=== PATIENT | male | born 1975 | race Two or more races ===

== ENCOUNTER 2016-08-09 19:21 | Inpatient (IN) | payer BC ==
[~2016-08-09] VITALS: Ht 175.3 cm; Wt 83.9 kg
[2016-08-09] MEDS ORDERED: VANCOMYCIN 1 GM in IV NORMAL SALINE 250ML 250 ML IV STA (19:49)
[2016-08-09] MEDS ORDERED: PIPERACILLIN/TAZOBACTAM 3.375 GM in IV NORMAL SALINE 50ML 50 ML IV ONE (20:00)
--- NOTE | 2016-08-09 20:00 | PHYS DOC ---
Adult General Chief Complaint Chief Complaint: HAND PROBLEM HPI HPI Patient is a 41 year old female presents to the emergency department for evaluation of left dorsal distal metacarpal pain redness swelling that started shortly after injury however it became much worse yesterday. There is an obvious laceration to the wound and he says it has been draining blood and purulence over the past 24 hours. He does have pain but he says it is not unbearable. He says it hurts to palpate and move his finger however on examination he is able to flex and extend his index finger with minimal difficulty actively and passively. He says that his tetanus status is up-to- date and he has no diabetes or immune system issues. He is left-handed. Review of Systems Review of Systems Constitutional: Denies fever or chills [] Eyes: Denies change in visual acuity, redness, or eye pain [] HENT: Denies nasal congestion or sore throat [] Respiratory: Denies cough or shortness of breath [] Cardiovascular: No additional information not addressed in HPI [] GI: Denies abdominal pain, nausea, vomiting, bloody stools or diarrhea [] : Denies dysuria or hematuria [] Musculoskeletal: Denies back pain. + L hand joint pain [] Integument: Denies rash or skin lesions [] Neurologic: Denies headache, focal weakness or sensory changes [] Current Medications Current Medications Current Medications Medications (Trade) Dose Ordered Sig/Sheila Start Time Stop Time Status Last Admin Dose Admin Fentanyl Citrate (Fentanyl 2ml Vial) 50 mcg PRN Q1HR PRN 08/09/16 20:45 08/10/16 20:44 Morphine Sulfate 5 mg 1X ONCE 08/09/16 20:45 08/09/16 20:46 DC Ondansetron HCl (Zofran) 4 mg PRN Q8HRS PRN 08/09/16 20:45 08/10/16 20:44 Piperacillin Sod/ Tazobactam Sod 3.375 gm/Sodium Chloride 50 ml @ 100 mls/hr 1X ONCE 08/09/16 20:00 08/09/16 20:29 DC 08/09/16 20:29 100 MLS/HR Vancomycin HCl 1 gm/Sodium Chloride 250 ml @ 250 mls/hr 1X STAT 08/09/16 19:49 08/09/16 20:48 UNV Vancomycin HCl 2 gm/Sodium Chloride 500 ml @ 250 mls/hr 1X ONCE 08/09/16 20:30 08/09/16 22:29 Allergies Allergies Allergies Coded Allergies Type Severity Reaction Last Updated Verified No Known Drug Allergies 08/09/16 No Physical Exam Physical Exam Constitutional: Well developed, well nourished, no acute distress, non-toxic appearance. [] HENT: Normocephalic, atraumatic, bilateral external ears normal, oropharynx moist, no oral exudates, nose normal. [] Eyes: PERRLA, EOMI, conjunctiva normal, no discharge. [] Neck: Normal range of motion, no tenderness, supple, no stridor. [] Cardiovascular:Heart rate regular rhythm, no murmur [] Lungs & Thorax: Bilateral breath sounds clear to auscultation [] Abdomen: Bowel sounds normal, soft, no tenderness, no masses, no pulsatile masses. [] Skin: Warm, dry, no erythema, no rash. [] Back: No tenderness, no CVA tenderness. [] Extremities: L doral distal metacarpal on index digit has laceration that is scabbed. No active drainage. There is appx 3x3cm surrounding redness, warmth, swelling, pain. He is able to flex and extend index finger actively and passively with no significant pain. No fusiform digit. No flexor tendon pain. No Knavels s/s. Distally NV intact Neurologic: Alert and oriented X 3, normal motor function, normal sensory function, no focal deficits noted. [] Current Patient Data Vital Signs Vital Signs Date Time Temp Pulse Resp B/P (MAP) Pulse Ox O2 Delivery O2 Flow Rate FiO2 08/09/16 19:45 98.6 84 16 125/67 (86) 95 98.6 Lab Values Laboratory Tests Test 08/09/16 20:02 White Blood Count 10.2 x10^3/uL (4.0-11.0) Red Blood Count 4.51 x10^6/uL (4.30-5.70) Hemoglobin 14.7 g/dL (13.0-17.5) Hematocrit 43.9 % (39.0-53.0) Mean Corpuscular Volume 97 fL (79-100) Mean Corpuscular Hemoglobin 33 pg (25-35) Mean Corpuscular Hemoglobin Concent 34 g/dL (31-37) Red Cell Distribution Width 12.1 % (11.5-14.5) Platelet Count 165 x10^3/uL (140-400) Neutrophils (%) (Auto) 76 % (31-73) H Lymphocytes (%) (Auto) 15 % (24-48) L Monocytes (%) (Auto) 8 % (0-9) Eosinophils (%) (Auto) 1 % (0-3) Basophils (%) (Auto) 0 % (0-3) Neutrophils # (Auto) 7.7 x10^3uL (1.8-7.7) Lymphocytes # (Auto) 1.5 x10^3/uL (1.0-4.8) Monocytes # (Auto) 0.8 x10^3/uL (0.0-1.1) Eosinophils # (Auto) 0.1 x10^3/uL (0.0-0.7) Basophils # (Auto) 0.0 x10^3/uL (0.0-0.2) Sodium Level 140 mmol/L (136-145) Potassium Level 3.7 mmol/L (3.5-5.1) Chloride Level 105 mmol/L (98-107) Carbon Dioxide Level 24 mmol/L (21-32) Anion Gap 11 (6-14) Blood Urea Nitrogen 20 mg/dL (8-26) Creatinine 0.9 mg/dL (0.7-1.3) Estimated GFR (Cockcroft-Gault) 93.0 BUN/Creatinine Ratio 22 (6-20) H Glucose Level 158 mg/dL (70-99) H Calcium Level 8.8 mg/dL (8.5-10.1) Total Bilirubin Pending Aspartate Amino Transferase (AST) Pending Alanine Aminotransferase (ALT) Pending Alkaline Phosphatase Pending C-Reactive Protein, Quantitative Pending Total Protein Pending Albumin Pending Albumin/Globulin Ratio Pending Laboratory Tests 08/09/16 20:02 Laboratory Tests 08/09/16 20:02 EKG EKG [] Radiology/Procedures Radiology/Procedures Left hand shows no obvious fracture dislocation or foreign body. His soft tissues appear swollen. Course & Med Decision Making Course & Med Decision Making I spoke to Dr. Jackson and he is agreeable to consult on patient as long as there is no open fracture or obvious tendon infection. I do not believe that there is a flexor or extensor tendon infection at this time. I am quite concerned as he is left-handed and there is a moderate amount of swelling and I' m concerned about outpatient antibiotics given location. Dr. Young is willing to admit and Dr. Jackson will consult and patient is to be nothing by mouth after midnight. Patient is receiving Vanc and Zosyn at this time. Dragon Disclaimer Dragon Disclaimer This electronic medical record was generated, in whole or in part, using a voice recognition dictation system. Departure Departure Impression: Primary Impression: Cellulitis of hand, left Disposition: ADMITTED INPATIENT Admitting Physician: Terence Young Condition: STABLE Referrals: CECELIA AGUILAR MD (PCP) JYOTHI HUTSON DO Aug 09, 2016 20:00
[2016-08-09 20:27] LABS: BASO % 0 % (0-3); EOS % 1 % (0-3); HEMATOCRIT 43.9 % (39.0-53.0); HEMOGLOBIN 14.7 g/dL (13.0-17.5); LYMPH # 1.5 x10^3/uL (1.0-4.8); LYMPH % 15 % (24-48); MEAN CORPUSCULAR HEMOGLOBIN 33 pg (25-35); MEAN CORPUSCULAR HGB CONC 34 g/dL (31-37); MEAN CORPUSCULAR VOLUME 97 fL (79-100); MONO % 8 % (0-9); NEUT % 76 % (31-73); PLATELET COUNT 165 x10^3/uL (140-400); RED BLOOD COUNT 4.51 x10^6/uL (4.30-5.70); RED CELL DISTRIBUTION WIDTH 12.1 % (11.5-14.5); WHITE BLOOD COUNT 10.2 x10^3/uL (4.0-11.0)
[2016-08-09] MEDS ORDERED: VANCOMYCIN 2 GM in IV NORMAL SALINE 500ML BAG 500 ML IV ONE (20:30)
[2016-08-09] MEDS ORDERED: ONDANSETRON PF 4 MG/2 ML VIAL. IV PRN (20:45)
[2016-08-09] MEDS ORDERED: MORPHINE SULFATE 10 MG/ML VIAL. IV ONE (20:45)
[2016-08-09 20:46] LABS: CALCIUM 8.8 mg/dL (8.5-10.1); CREATININE 0.9 mg/dL (0.7-1.3); POTASSIUM 3.7 mmol/L (3.5-5.1)
[2016-08-09 20:53] LABS: ALBUMIN/GLOBULIN RATIO 1.2 (1.0-1.7); C-REACTIVE PROTEIN 54.7 mg/L (0-3.3); TOTAL BILIRUBIN 0.8 mg/dL (0.2-1.0); TOTAL PROTEIN 7.4 g/dL (6.4-8.2)
[2016-08-09] MEDS: fentaNYL PF VIAL 100 MCG/2 ML VIAL IV PRN (22:39)
[2016-08-09 23:06] VITALS: BP 123/69
[2016-08-10] MEDS: diphenhydrAMINE 50 MG/ML VIAL IVP PRN (00:09)
[2016-08-10] MEDS: fentaNYL PF VIAL 100 MCG/2 ML VIAL IV PRN ×5 (00:21→20:29)
[2016-08-10 03:02] VITALS: BP 125/70
[2016-08-10 06:07] LABS: BASO % 0 % (0-3); EOS % 1 % (0-3); HEMOGLOBIN 14.8 g/dL (13.0-17.5); LYMPH % 8 % (24-48); MEAN CORPUSCULAR HEMOGLOBIN 33 pg (25-35); MEAN CORPUSCULAR HGB CONC 34 g/dL (31-37); MEAN CORPUSCULAR VOLUME 97 fL (79-100); MONO % 7 % (0-9); NEUT % 85 % (31-73); PLATELET COUNT 159 x10^3/uL (140-400); RED BLOOD COUNT 4.52 x10^6/uL (4.30-5.70); RED CELL DISTRIBUTION WIDTH 12.5 % (11.5-14.5); WHITE BLOOD COUNT 12.4 x10^3/uL (4.0-11.0)
[2016-08-10 06:20] LABS: CALCIUM 8.6 mg/dL (8.5-10.1); CREATININE 0.9 mg/dL (0.7-1.3); POTASSIUM 4.3 mmol/L (3.5-5.1)
[2016-08-10 07:41] VITALS: BP 109/60
--- NOTE | 2016-08-10 07:44 | RAD ---
Indication: Second metacarpal pain and swelling. Time of exam 2010 hours. 3 views of the left hand were obtained. There is some mild soft tissue swelling along the dorsum of the hand. The metacarpals and phalanges appear intact. No fractures are seen. The carpus is unremarkable. Impression: Soft tissue swelling. No acute bony abnormality is detected.
--- NOTE | 2016-08-10 10:43 | PDOC ---
Provider Note Provider Note H&P dictated # [id number] He has an abscess of dorsal left hand that despite overnight IV antibiotics is not improving and it may involve the extensor tendons, he had and overnight temp , his WBC is increasing, his sed rate is normal but CRP is 54 but he also has some seasonal allergies, he has a family hx of diabetes and his glucose is mildly elevated. Will get MRI of left upper ext, ortho to see, continue IV abx , may need ID to see if surgery not indicated. will check A1c, do fingetstick glc, check IgE as if elevated then elevated CRP may be reflective of allergies but if not then can assume it is from infection NANCY CASTILLO MD Aug 10, 2016 10:43
[2016-08-10] MEDS ORDERED: DEXTROSE 50% 25 GM / 50ML DISP.SYRIN. IV PRN (10:45)
[2016-08-10] MEDS: ACETAMINOPHEN 325 MG TABLET. PO PRN ×2 (11:03→20:44)
--- NOTE | 2016-08-10 11:08 | HP ---
ADMIT DATE: 08/09/2016 ADMISSION DIAGNOSIS: Abscess, left hand, possible tendon involvement. 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 He had pain developed and is unable to flex his index, middle and ring fingers because of the swelling and pain. He has developed pain up his forearm now. He is left handed. His Emergency Room evaluation revealed concern for tendinous involvement and he was admitted on IV vancomycin and Zosyn and this point is not showing any significant improvement. He did develop some itching with fentanyl. He denies any fever, chills or systemic symptoms. PAST MEDICAL HISTORY: Significant for seasonal allergies and tobacco use. PAST SURGICAL HISTORY: Include tonsillectomy. FAMILY HISTORY: Prostate cancer in an uncle and diabetes in his mother. SOCIAL HISTORY: Positive for tobacco. ALLERGIES: He has no known drug allergies. HOME MEDICATIONS: He takes no routine home medications. REVIEW OF SYSTEMS: CONSTITUTIONAL: Negative for fever, chills, night sweats or weight loss. PULMONARY: Negative for cough. CARDIAC: Negative for chest pain or palpitations. GASTROINTESTINAL: Negative for GERD or change in bowels. PULMONARY: Negative for urinary frequency. SKIN: As above. MUSCULOSKELETAL: Negative for gout. NEUROLOGIC: Negative for headaches, seizures or tremor. PSYCHIATRIC: Negative for depression. PHYSICAL EXAMINATION: VITAL SIGNS: He had a temperature of 100.2 at 3 a.m. Blood pressure is normal. Room air oxygen saturation is normal. Respiratory rate is normal. Heart rate is normal. GENERAL: He is in no acute distress, but he is unable to flex his left index, middle and ring finger due to swelling in the dorsal hand. It does prevent flexion of the wrist and when he does, there is pain up his forearm suggesting there may in now be tendon involvement. There is no active drainage from it at this point. HEART: Regular rate and rhythm. LUNGS: Clear to auscultation. ABDOMEN: Soft and nondistended. EXTREMITIES: Rest of the extremities are unremarkable. NEUROLOGIC: He is intact. He is alert and oriented with appropriate mood and affect. LABORATORY DATA: Shows white count has gone up from 10.2 to 12.4 overnight. Sed rate was only 10. Chemistries are unremarkable, but his initial glucose was 158 and followup was 111. C-reactive protein is elevated at 54.7. ASSESSMENT AND PLAN: 1. Abscess of the left hand, admitted for concern about tendon involvement. He seems to be worsening with fever overnight and elevated white count despite antibiotics. 2. Seasonal allergies. 3. Hyperglycemia. We will continue his IV antibiotics. We will stop his fentanyl as he may have had some itching related to it. Dr. Jackson will see him in consultation. MRI of the hand is ordered. He will likely need operative I and D. W Kana CASTILLO MD DR: JUAN/al JOB#: [id number] / [id number]
[2016-08-10 11:29] VITALS: BP 102/50
[2016-08-10] MEDS: INSULIN ASPART 300 UNITS/3 ML INSULN.PEN SQ SCH ×2 (12:00→17:00)
[2016-08-10] MEDS: VANCOMYCIN PER PHARMACY MC PRN (12:38)
[2016-08-10] MEDS: PIPERACILLIN/TAZOBACTAM 3.375 GM in IV NORMAL SALINE 50ML 50 ML IV SCH ×2 (13:02→17:35)
[2016-08-10] MEDS: VANCOMYCIN 1.25 GM in IV NORMAL SALINE 250ML 250 ML IV SCH ×2 (14:05→20:36)
[2016-08-10 19:00] VITALS: BP 100/68
[2016-08-10] MEDS ORDERED: ONDANSETRON PF 4 MG/2 ML VIAL. IV PRN (22:30)
[2016-08-10] MEDS ORDERED: fentaNYL PF VIAL 100 MCG/2 ML VIAL IV PRN (22:30)
[2016-08-10 22:36] VITALS: BP 113/59
[2016-08-11] MEDS: HYDROcodone/APAP 5/325MG 1 TAB TABLET PO PRN ×4 (00:05→23:43)
[2016-08-11] MEDS: PIPERACILLIN/TAZOBACTAM 3.375 GM in IV NORMAL SALINE 50ML 50 ML IV SCH ×5 (00:05→23:35)
[2016-08-11 02:37] VITALS: BP 99/56
[2016-08-11] MEDS: VANCOMYCIN 1.25 GM in IV NORMAL SALINE 250ML 250 ML IV SCH ×3 (05:09→21:44)
[2016-08-11 07:00] VITALS: BP 91/60
--- NOTE | 2016-08-11 07:26 | CONS ---
DATE OF CONSULTATION: 08/10/2016 REQUESTING CONSULTATION: [facility] as well as Dr. Lefty Young. REASON FOR CONSULTATION: Left hand infection. HISTORY OF PRESENT ILLNESS: The patient is a 41-year-old male who hit his hand with a hammer approximately a week ago. He had a cut on his hand at that time and states that he was able to still move his fingers initially, subsequently developed some more swelling and pain and then started to have some purulent drainage as of the day prior to admission and then came to the Emergency Department late last night having increased pain, redness, swelling. Tetanus was previously up-to-date. He is left hand dominant. He denies any significant medical problems. ____ No surgical history. ALLERGIES: No known drug allergies. MEDICATIONS: Really, no medications prior. PAST SURGICAL HISTORY: Does include a tonsillectomy, however. PAST MEDICAL HISTORY: Significant for seasonal allergies. FAMILY HISTORY: Diabetes in his mom and prostate cancer in one of his uncles. SOCIAL HISTORY: Does use tobacco. Denies alcohol or drug use. REVIEW OF SYSTEMS: No fever, chills and no other joint pain or limitations, just the stiffness of the left hand, particularly the index finger. PHYSICAL EXAMINATION: VITAL SIGNS: He is currently afebrile. He had a temp of 100.2 last night. Vital signs are otherwise stable. EXTREMITIES: On examination of the left upper extremity, he has a small oblique laceration, lateral and proximal to the metacarpophalangeal joint of the index finger. Really, no tenderness overlying the extensor or flexor tendon sheaths or the joint itself. He has swelling in the hand extending towards the first webspace of the left hand, which is preventing him from full flexion. He can extend fully passively. Active extension is limited secondary to pain. He has full motion of the remaining fingers. Normal examination of the contralateral hand, bilateral wrists, elbows and shoulders with overall intact motor function, distal pulses, sensation, reflexes, skin in both upper extremities throughout. IMAGING: X-rays of the left hand show no evidence of fracture or other bony abnormality. Joint spaces are well maintained. IMPRESSION: Left hand infection. TREATMENT PLAN: The patient was previously placed on some Zosyn and vancomycin, which did not really give him any reaction initially, but stated that his Zosyn seemed to cause him some itching today with the current dose that is hanging, also had some itching with fentanyl that was obtained in the Emergency Department. He had an increased white count overnight, hyperglycemia and states that his hand does feel a little bit better since initiating the antibiotics, but is still very painful. I went over with him the fact that the area does appear fluctuant and there is probably some fluid collected underneath the skin. We could possibly take him down to the operating room, but if he is not very tender, we have a possibility of opening the area up and washing it out somewhat right here and packing it open, hopefully saving him a formal operating room visit. He would prefer that. So, after consent was obtained, the left hand was prepped sterilely and a small longitudinal incision was made following along the oblique wound as well and purulent drainage was expressed out of the area, which was cultured. The area was irrigated out as well, appeared to have a superficial involvement in the subcutaneous area, again really not involving the tendon sheaths or joint spaces, particularly at the metacarpophalangeal joint. The area was packed open and sterilely dressed. He did ask if he could go home today. I told him the problem with that approach is that we would really not know what antibiotic to keep him on, particularly with the reaction to the antibiotic cultures having been just obtained and the fact that he had worsened somewhat overnight, I really like to see a little bit of improvement, so would prefer to keep him today for some additional IV antibiotics and to sort the situation out better as far as his response to the irrigation and debridement procedure above. Note that this is an initial orthopedic consultation as well as a procedure note. SANDRA CRUZ MD DR: JULIETTE/al JOB#: [id number] / [id number] Es Rome MD, MICHAEL MD
[2016-08-11] MEDS: INSULIN ASPART 300 UNITS/3 ML INSULN.PEN SQ SCH ×3 (08:00→17:00)
[2016-08-11 10:45] VITALS: BP 112/58
--- NOTE | 2016-08-11 10:54 | RAD ---
MR of the left hand without contrast HISTORY: Dorsal left hand abscess with possible tendon involvement for 3 or 4 days. TECHNIQUE: Routine multiplanar sequences are obtained. FINDINGS: Diffuse soft tissue edema and swelling of the hand, greatest dorsal. There is a more organized fluid signal appearing component within the edema and posterior to the second and third metacarpals, measuring approximately 3.0 cm wide by 2.3 cm long by 1.0 cm depth. This is suspicious for a small abscess. The second extensor tendons are immediately deep to this collection and contacting the collection but appear intrinsically intact. Some degree of involvement of the collection with the tendon sheath is possible. Tendons are otherwise intact. No evidence of bone lesion. No acute fracture. No significant joint effusion. IMPRESSION: 1. Soft tissue edema/infection along the hand, greatest dorsally. 2. More organized soft tissue fluid collection posterior to the second and third metacarpal shafts, most compatible with a small abscess measuring 3 cm long [place]. 3. The second extensor tendon is immediately deep to this collection and contacted by the collection. The tendons themselves appear intrinsically intact but the collection or abscess may communicate with the tendon sheath. Electronically signed by: Lm Covington MD (08/11/2016 10:51 AM)
[2016-08-11 11:17] LABS: IMMUNOGLUBULIN E 179 IU/mL (0-100)
[2016-08-11 12:28] LABS: BASO % 1 % (0-3); EOS % 2 % (0-3); HEMATOCRIT 41.1 % (39.0-53.0); HEMOGLOBIN 14.1 g/dL (13.0-17.5); LYMPH # 1.4 x10^3/uL (1.0-4.8); LYMPH % 15 % (24-48); MEAN CORPUSCULAR HEMOGLOBIN 33 pg (25-35); MEAN CORPUSCULAR HGB CONC 34 g/dL (31-37); MEAN CORPUSCULAR VOLUME 97 fL (79-100); MONO % 8 % (0-9); NEUT % 75 % (31-73); PLATELET COUNT 161 x10^3/uL (140-400); RED BLOOD COUNT 4.25 x10^6/uL (4.30-5.70); RED CELL DISTRIBUTION WIDTH 11.9 % (11.5-14.5); WHITE BLOOD COUNT 9.6 x10^3/uL (4.0-11.0)
--- NOTE | 2016-08-11 13:05 | PDOC ---
PROGRESS NOTES Subjective Subjective He had bedside I&D of hand yesterday but MRI of hand which has now been read suggests tendon involvement. He is tolerating the IV antibiotics without further itching and pain is controlled with po meds, dressing is dry. ROS id all negative Objective Objective Vital Signs Date Time Temp Pulse Resp B/P (MAP) Pulse Ox O2 Delivery O2 Flow Rate FiO2 08/11/16 10:45 98.4 62 18 112/58 (76) 95 Room Air 98.4 Intake and Output 08/11/16 07:00 Intake Total 1700 ml Balance 1700 ml Intake Oral 1400 ml IV Total 300 ml # Voids 3 Physical Exam Abdomen: Soft Extremities: Other (left hand dressed, but still has limited ROM) General: Alert, Oriented X3, Cooperative HEENT: Atraumatic Lungs: Normal air movement MUSCULOSKELETAL: No joint tenderness Psych/Mental Status: Mental status NL Assessment Assessment Problems Medical Problems: (1) Cellulitis of hand, left, s/p bedside I&D for abscess, culture pending, may involve tendon per MRI Status: Acute Plan Plan of Care continue IV antibiotics, will defer to Dr. Jackson but he may be able to go home on po abx and wait and see if improvement occurs Comment Review of Relevant I have reviewed the following items salty (where applicable) has been applied. Labs Laboratory Tests Test 08/09/16 20:02 08/10/16 05:20 08/10/16 11:40 08/10/16 17:01 White Blood Count 10.2 x10^3/uL (4.0-11.0) 12.4 x10^3/uL (4.0-11.0) Red Blood Count 4.51 x10^6/uL (4.30-5.70) 4.52 x10^6/uL (4.30-5.70) Hemoglobin 14.7 g/dL (13.0-17.5) 14.8 g/dL (13.0-17.5) Hematocrit 43.9 % (39.0-53.0) 44.0 % (39.0-53.0) Mean Corpuscular Volume 97 fL (79-100) 97 fL (79-100) Mean Corpuscular Hemoglobin 33 pg (25-35) 33 pg (25-35) Mean Corpuscular Hemoglobin Concent 34 g/dL (31-37) 34 g/dL (31-37) Red Cell Distribution Width 12.1 % (11.5-14.5) 12.5 % (11.5-14.5) Platelet Count 165 x10^3/uL (140-400) 159 x10^3/uL (140-400) Neutrophils (%) (Auto) 76 % (31-73) 85 % (31-73) Lymphocytes (%) (Auto) 15 % (24-48) 8 % (24-48) Monocytes (%) (Auto) 8 % (0-9) 7 % (0-9) Eosinophils (%) (Auto) 1 % (0-3) 1 % (0-3) Basophils (%) (Auto) 0 % (0-3) 0 % (0-3) Neutrophils # (Auto) 7.7 x10^3uL (1.8-7.7) 10.5 x10^3uL (1.8-7.7) Lymphocytes # (Auto) 1.5 x10^3/uL (1.0-4.8) 1.0 x10^3/uL (1.0-4.8) Monocytes # (Auto) 0.8 x10^3/uL (0.0-1.1) 0.8 x10^3/uL (0.0-1.1) Eosinophils # (Auto) 0.1 x10^3/uL (0.0-0.7) 0.1 x10^3/uL (0.0-0.7) Basophils # (Auto) 0.0 x10^3/uL (0.0-0.2) 0.0 x10^3/uL (0.0-0.2) Erythrocyte Sedimentation Rate 10 (0-15) Sodium Level 140 mmol/L (136-145) 139 mmol/L (136-145) Potassium Level 3.7 mmol/L (3.5-5.1) 4.3 mmol/L (3.5-5.1) Chloride Level 105 mmol/L (98-107) 105 mmol/L (98-107) Carbon Dioxide Level 24 mmol/L (21-32) 25 mmol/L (21-32) Anion Gap 11 (6-14) 9 (6-14) Blood Urea Nitrogen 20 mg/dL (8-26) 16 mg/dL (8-26) Creatinine 0.9 mg/dL (0.7-1.3) 0.9 mg/dL (0.7-1.3) Estimated GFR (Cockcroft-Gault) 93.0 93.0 BUN/Creatinine Ratio 22 (6-20) Glucose Level 158 mg/dL (70-99) 111 mg/dL (70-99) Calcium Level 8.8 mg/dL (8.5-10.1) 8.6 mg/dL (8.5-10.1) Total Bilirubin 0.8 mg/dL (0.2-1.0) Aspartate Amino Transf (AST/SGOT) 17 U/L (15-37) Alanine Aminotransferase (ALT/SGPT) 30 U/L (16-63) Alkaline Phosphatase 58 U/L (46-116) C-Reactive Protein, Quantitative 54.7 mg/L (0-3.3) Total Protein 7.4 g/dL (6.4-8.2) Albumin 4.0 g/dL (3.4-5.0) Albumin/Globulin Ratio 1.2 (1.0-1.7) Immunoglobulin E 179 IU/mL (0-100) Glucose (Fingerstick) 92 mg/dL (70-99) 80 mg/dL (70-99) Test 08/10/16 20:31 08/11/16 07:09 08/11/16 11:38 08/11/16 12:15 Glucose (Fingerstick) 118 mg/dL (70-99) 97 mg/dL (70-99) 102 mg/dL (70-99) White Blood Count 9.6 x10^3/uL (4.0-11.0) Red Blood Count 4.25 x10^6/uL (4.30-5.70) Hemoglobin 14.1 g/dL (13.0-17.5) Hematocrit 41.1 % (39.0-53.0) Mean Corpuscular Volume 97 fL (79-100) Mean Corpuscular Hemoglobin 33 pg (25-35) Mean Corpuscular Hemoglobin Concent 34 g/dL (31-37) Red Cell Distribution Width 11.9 % (11.5-14.5) Platelet Count 161 x10^3/uL (140-400) Neutrophils (%) (Auto) 75 % (31-73) Lymphocytes (%) (Auto) 15 % (24-48) Monocytes (%) (Auto) 8 % (0-9) Eosinophils (%) (Auto) 2 % (0-3) Basophils (%) (Auto) 1 % (0-3) Neutrophils # (Auto) 7.2 x10^3uL (1.8-7.7) Lymphocytes # (Auto) 1.4 x10^3/uL (1.0-4.8) Monocytes # (Auto) 0.7 x10^3/uL (0.0-1.1) Eosinophils # (Auto) 0.2 x10^3/uL (0.0-0.7) Basophils # (Auto) 0.0 x10^3/uL (0.0-0.2) Vancomycin Level Trough 13.9 mcg/mL (10.0-20.0) Vancomycin Last Dose Date 08/11/16 Vancomycin Last Dose Time 0500 Laboratory Tests Test 08/10/16 17:01 08/10/16 20:31 08/11/16 07:09 08/11/16 11:38 Glucose (Fingerstick) 80 mg/dL (70-99) 118 mg/dL (70-99) 97 mg/dL (70-99) 102 mg/dL (70-99) Test 08/11/16 12:15 White Blood Count 9.6 x10^3/uL (4.0-11.0) Red Blood Count 4.25 x10^6/uL (4.30-5.70) Hemoglobin 14.1 g/dL (13.0-17.5) Hematocrit 41.1 % (39.0-53.0) Mean Corpuscular Volume 97 fL (79-100) Mean Corpuscular Hemoglobin 33 pg (25-35) Mean Corpuscular Hemoglobin Concent 34 g/dL (31-37) Red Cell Distribution Width 11.9 % (11.5-14.5) Platelet Count 161 x10^3/uL (140-400) Neutrophils (%) (Auto) 75 % (31-73) Lymphocytes (%) (Auto) 15 % (24-48) Monocytes (%) (Auto) 8 % (0-9) Eosinophils (%) (Auto) 2 % (0-3) Basophils (%) (Auto) 1 % (0-3) Neutrophils # (Auto) 7.2 x10^3uL (1.8-7.7) Lymphocytes # (Auto) 1.4 x10^3/uL (1.0-4.8) Monocytes # (Auto) 0.7 x10^3/uL (0.0-1.1) Eosinophils # (Auto) 0.2 x10^3/uL (0.0-0.7) Basophils # (Auto) 0.0 x10^3/uL (0.0-0.2) Vancomycin Level Trough 13.9 mcg/mL (10.0-20.0) Vancomycin Last Dose Date 08/11/16 Vancomycin Last Dose Time 0500 Microbiology 08/09/16 Blood Culture - Preliminary, Resulted NO GROWTH AFTER 1 DAY 08/10/16 Gram Stain - Final, Complete Medications Current Medications Piperacillin Sod/ Tazobactam Sod 3.375 gm/Sodium Chloride 50 ml @ 100 mls/hr 1X ONCE IV Last administered on 08/09/16 20:29; Start 08/09/16 at 20:00; Stop 08/09/16 at 20:29; Status DC Vancomycin HCl 1 gm/Sodium Chloride 250 ml @ 250 mls/hr 1X STAT IV ; Start 08/09/16 at 19:49; Stop 08/09/16 at 20:48; Status UNV Vancomycin HCl 2 gm/Sodium Chloride 500 ml @ 250 mls/hr 1X ONCE IV Last administered on 08/09/16 22:37; Start 08/09/16 at 20:30; Stop 08/09/16 at 22:29; Status DC Morphine Sulfate 5 mg 1X ONCE IV Last administered on 08/09/16 20:53; Start at 20:45; Stop 08/09/16 at 20:46; Status DC Ondansetron HCl (Zofran) 4 mg PRN Q8HRS PRN IV NAUSEA/VOMITING; Start 08/09/16 at 20:45; Stop 08/10/16 at 20:44; Status DC Fentanyl Citrate (Fentanyl 2ml Vial) 50 mcg PRN Q1HR PRN IV PAIN Last administered on 08/10/16 20:29; Start 08/09/16 at 20:45; Stop 08/10/16 at 20:44; Status DC Diphenhydramine HCl (Benadryl) 25 mg PRN Q6HRS PRN PO ITCHING; Start 08/10/16 at 00:00 Diphenhydramine HCl (Benadryl) 25 mg PRN Q6HRS PRN IVP ITCHING Last administered on 08/10/16 00:09; Start 08/10/16 at 00:00 Acetaminophen (Tylenol) 650 mg PRN Q6HRS PRN PO HEADACHE Last administered on 20:44; Start 08/10/16 at 10:15 Insulin Aspart (NovoLOG) 0-5 UNITS TIDWMEALS SQ ; Start 08/10/16 at 12:00 Dextrose (Dextrose 50%-Water Syringe) 12.5 gm PRN Q15MIN PRN IV SEE COMMENTS; Start 08/10/16 at 10:45 Piperacillin Sod/ Tazobactam Sod 3.375 gm/Sodium Chloride 50 ml @ 100 mls/hr Q6HRS IV Last administered on 08/11/16 11:53; Start 08/10/16 at 12:30 Vancomycin HCl (Vanco Per Pharmacy) 1 each PRN DAILY PRN MC SEE COMMENTS Last administered on 08/10/16 12:38; Start 08/10/16 at 12:30 Vancomycin HCl 1.25 gm/Sodium Chloride 250 ml @ 167 mls/hr Q8H IV Last administered on 08/11/16 05:09; Start 08/10/16 at 13:00 Vancomycin HCl 1 each 1X ONCE MC ; Start 08/11/16 at 12:30; Stop 08/11/16 at 12: 31; Status DC Acetaminophen/ Hydrocodone Bitart (Lortab 5/325) 1 tab PRN QID PRN PO PAIN Last administered on 08/11/16 00:05; Start 08/10/16 at 22:30 Acetaminophen/ Hydrocodone Bitart (Lortab 5/325) 2 tab PRN QID PRN PO PAIN Last administered on 08/11/16 11:06; Start 08/10/16 at 22:30 Fentanyl Citrate (Fentanyl 2ml Vial) 50 mcg PRN Q1HR PRN IV PAIN; Start at 22:30 Ondansetron HCl (Zofran) 4 mg PRN Q8HRS PRN IV NAUSEA/VOMITING; Start 08/10/16 at 22:30 Vitals/I & O Vital Sign - Last 24 Hours 08/10/16 08/10/16 08/10/16 08/10/16 19:00 20:00 20:29 22:36 Temp 98.4 99.4 98.4 99.4 Pulse 73 75 Resp 18 18 B/P (MAP) 100/68 (79) 113/59 (77) Pulse Ox 96 95 O2 Delivery Room Air Room Air Room Air Room Air 08/11/16 08/11/16 08/11/16 08/11/16 00:05 01:05 02:37 07:00 Temp 98.0 98.0 98.0 98.0 Pulse 62 61 Resp 18 18 B/P (MAP) 99/56 (70) 91/60 (70) Pulse Ox 93 95 O2 Delivery Room Air Room Air Room Air Room Air 08/11/16 10:45 Temp 98.4 98.4 Pulse 62 Resp 18 B/P (MAP) 112/58 (76) Pulse Ox 95 O2 Delivery Room Air Intake and Output 08/10/16 08/10/16 08/11/16 15:00 23:00 07:00 Intake Total 500 ml 1200 ml Balance 500 ml 1200 ml NANCY CASTILLO MD Aug 11, 2016 13:05
[2016-08-11] MEDS: VANCOMYCIN PER PHARMACY MC PRN (14:03)
[2016-08-11 15:04] VITALS: BP 108/59
[2016-08-11 19:00] VITALS: BP 132/59
[2016-08-11 23:00] VITALS: BP 117/161
[2016-08-11] MEDS: diphenhydrAMINE 50 MG/ML VIAL IVP PRN (23:35)
[2016-08-12] MEDS: VANCOMYCIN 1.25 GM in IV NORMAL SALINE 250ML 250 ML IV SCH (04:59)
[2016-08-12] MEDS: HYDROcodone/APAP 5/325MG 1 TAB TABLET PO PRN ×3 (05:08→22:43)
[2016-08-12 05:56] LABS: CALCIUM 8.7 mg/dL (8.5-10.1); CREATININE 0.8 mg/dL (0.7-1.3); GFR 106.5; POTASSIUM 4.5 mmol/L (3.5-5.1)
[2016-08-12] MEDS: PIPERACILLIN/TAZOBACTAM 3.375 GM in IV NORMAL SALINE 50ML 50 ML IV SCH ×3 (06:19→18:05)
[2016-08-12 07:00] VITALS: BP 96/64
[2016-08-12] MEDS: INSULIN ASPART 300 UNITS/3 ML INSULN.PEN SQ SCH ×3 (07:38→17:01)
[2016-08-12] MEDS ORDERED: MORPHINE SULFATE 2 MG/ML DISP.SYRIN. IV ONE (08:45)
--- NOTE | 2016-08-12 08:53 | PDOC ---
PROGRESS NOTES Subjective Subjective He is still in a lot of pain from his hand and still cannot make a fist, micro still not fnal but suggesting anaerobes. No fever, chills or systemic symptoms. ROS negative for other issues. Dressing was removed and about 15 cc of bloody "tomato soup" expressed from incision. Packing still in place Objective Objective Vital Signs Date Time Temp Pulse Resp B/P (MAP) Pulse Ox O2 Delivery O2 Flow Rate FiO2 08/12/16 07:13 96 Room Air 08/12/16 07:00 98.2 55 18 96/64 (75) 98.2 Intake and Output 08/12/16 07:00 Intake Total 1430 ml Balance 1430 ml Intake Oral 1430 ml # Voids 6 Physical Exam Abdomen: Normal bowel sounds Heart: Regular rate Extremities: Other (left hand as above, unable to bend wrist comfortable) General: Alert, Oriented X3, Cooperative HEENT: Atraumatic Lungs: Clear to auscultation Neuro: Normal tone Psych/Mental Status: Mental status NL Assessment Assessment Problems Medical Problems: (1) Cellulitis of hand, left, possible tendon involvement per MRI s/p I&D but he continues to have a lot of purulent drainage. Sugars are essentially normal , afebrile with normal WBC, culture still pending Status: Acute Plan Plan of Care ID consult, LINDA keller as no evidence of staph on cx, start Clindamycin for anaerobic Comment Review of Relevant I have reviewed the following items salty (where applicable) has been applied. Labs Laboratory Tests Test 08/10/16 11:40 08/10/16 17:01 08/10/16 20:31 08/11/16 07:09 Glucose (Fingerstick) 92 mg/dL (70-99) 80 mg/dL (70-99) 118 mg/dL (70-99) 97 mg/dL (70-99) Test 08/11/16 11:38 08/11/16 12:15 08/11/16 16:36 08/11/16 21:19 Glucose (Fingerstick) 102 mg/dL (70-99) 135 mg/dL (70-99) 120 mg/dL (70-99) White Blood Count 9.6 x10^3/uL (4.0-11.0) Red Blood Count 4.25 x10^6/uL (4.30-5.70) Hemoglobin 14.1 g/dL (13.0-17.5) Hematocrit 41.1 % (39.0-53.0) Mean Corpuscular Volume 97 fL (79-100) Mean Corpuscular Hemoglobin 33 pg (25-35) Mean Corpuscular Hemoglobin Concent 34 g/dL (31-37) Red Cell Distribution Width 11.9 % (11.5-14.5) Platelet Count 161 x10^3/uL (140-400) Neutrophils (%) (Auto) 75 % (31-73) Lymphocytes (%) (Auto) 15 % (24-48) Monocytes (%) (Auto) 8 % (0-9) Eosinophils (%) (Auto) 2 % (0-3) Basophils (%) (Auto) 1 % (0-3) Neutrophils # (Auto) 7.2 x10^3uL (1.8-7.7) Lymphocytes # (Auto) 1.4 x10^3/uL (1.0-4.8) Monocytes # (Auto) 0.7 x10^3/uL (0.0-1.1) Eosinophils # (Auto) 0.2 x10^3/uL (0.0-0.7) Basophils # (Auto) 0.0 x10^3/uL (0.0-0.2) Vancomycin Level Trough 13.9 mcg/mL (10.0-20.0) Vancomycin Last Dose Date 08/11/16 Vancomycin Last Dose Time 0500 Test 08/12/16 04:50 08/12/16 07:19 Sodium Level 139 mmol/L (136-145) Potassium Level 4.5 mmol/L (3.5-5.1) Chloride Level 105 mmol/L (98-107) Carbon Dioxide Level 27 mmol/L (21-32) Anion Gap 7 (6-14) Blood Urea Nitrogen 13 mg/dL (8-26) Creatinine 0.8 mg/dL (0.7-1.3) Estimated GFR (Cockcroft-Gault) 106.5 Glucose Level 92 mg/dL (70-99) Calcium Level 8.7 mg/dL (8.5-10.1) Glucose (Fingerstick) 116 mg/dL (70-99) Laboratory Tests Test 08/11/16 11:38 08/11/16 12:15 08/11/16 16:36 08/11/16 21:19 Glucose (Fingerstick) 102 mg/dL (70-99) 135 mg/dL (70-99) 120 mg/dL (70-99) White Blood Count 9.6 x10^3/uL (4.0-11.0) Red Blood Count 4.25 x10^6/uL (4.30-5.70) Hemoglobin 14.1 g/dL (13.0-17.5) Hematocrit 41.1 % (39.0-53.0) Mean Corpuscular Volume 97 fL (79-100) Mean Corpuscular Hemoglobin 33 pg (25-35) Mean Corpuscular Hemoglobin Concent 34 g/dL (31-37) Red Cell Distribution Width 11.9 % (11.5-14.5) Platelet Count 161 x10^3/uL (140-400) Neutrophils (%) (Auto) 75 % (31-73) Lymphocytes (%) (Auto) 15 % (24-48) Monocytes (%) (Auto) 8 % (0-9) Eosinophils (%) (Auto) 2 % (0-3) Basophils (%) (Auto) 1 % (0-3) Neutrophils # (Auto) 7.2 x10^3uL (1.8-7.7) Lymphocytes # (Auto) 1.4 x10^3/uL (1.0-4.8) Monocytes # (Auto) 0.7 x10^3/uL (0.0-1.1) Eosinophils # (Auto) 0.2 x10^3/uL (0.0-0.7) Basophils # (Auto) 0.0 x10^3/uL (0.0-0.2) Vancomycin Level Trough 13.9 mcg/mL (10.0-20.0) Vancomycin Last Dose Date 08/11/16 Vancomycin Last Dose Time 0500 Test 08/12/16 04:50 08/12/16 07:19 Sodium Level 139 mmol/L (136-145) Potassium Level 4.5 mmol/L (3.5-5.1) Chloride Level 105 mmol/L (98-107) Carbon Dioxide Level 27 mmol/L (21-32) Anion Gap 7 (6-14) Blood Urea Nitrogen 13 mg/dL (8-26) Creatinine 0.8 mg/dL (0.7-1.3) Estimated GFR (Cockcroft-Gault) 106.5 Glucose Level 92 mg/dL (70-99) Calcium Level 8.7 mg/dL (8.5-10.1) Glucose (Fingerstick) 116 mg/dL (70-99) Microbiology 08/09/16 Blood Culture - Preliminary, Resulted NO GROWTH AFTER 2 DAYS 08/10/16 Gram Stain - Final, Complete Medications Current Medications Piperacillin Sod/ Tazobactam Sod 3.375 gm/Sodium Chloride 50 ml @ 100 mls/hr 1X ONCE IV Last administered on 08/09/16 20:29; Start 08/09/16 at 20:00; Stop 08/09/16 at 20:29; Status DC Vancomycin HCl 1 gm/Sodium Chloride 250 ml @ 250 mls/hr 1X STAT IV ; Start 08/09/16 at 19:49; Stop 08/09/16 at 20:48; Status UNV Vancomycin HCl 2 gm/Sodium Chloride 500 ml @ 250 mls/hr 1X ONCE IV Last administered on 08/09/16 22:37; Start 08/09/16 at 20:30; Stop 08/09/16 at 22:29; Status DC Morphine Sulfate 5 mg 1X ONCE IV Last administered on 08/09/16 20:53; Start at 20:45; Stop 08/09/16 at 20:46; Status DC Ondansetron HCl (Zofran) 4 mg PRN Q8HRS PRN IV NAUSEA/VOMITING; Start 08/09/16 at 20:45; Stop 08/10/16 at 20:44; Status DC Fentanyl Citrate (Fentanyl 2ml Vial) 50 mcg PRN Q1HR PRN IV PAIN Last administered on 08/10/16 20:29; Start 08/09/16 at 20:45; Stop 08/10/16 at 20:44; Status DC Diphenhydramine HCl (Benadryl) 25 mg PRN Q6HRS PRN PO ITCHING; Start 08/10/16 at 00:00 Diphenhydramine HCl (Benadryl) 25 mg PRN Q6HRS PRN IVP ITCHING Last administered on 08/11/16 23:35; Start 08/10/16 at 00:00 Acetaminophen (Tylenol) 650 mg PRN Q6HRS PRN PO HEADACHE Last administered on 20:44; Start 08/10/16 at 10:15 Insulin Aspart (NovoLOG) 0-5 UNITS TIDWMEALS SQ ; Start 08/10/16 at 12:00 Dextrose (Dextrose 50%-Water Syringe) 12.5 gm PRN Q15MIN PRN IV SEE COMMENTS; Start 08/10/16 at 10:45 Piperacillin Sod/ Tazobactam Sod 3.375 gm/Sodium Chloride 50 ml @ 100 mls/hr Q6HRS IV Last administered on 08/12/16 06:19; Start 08/10/16 at 12:30 Vancomycin HCl (Vanco Per Pharmacy) 1 each PRN DAILY PRN MC SEE COMMENTS Last administered on 08/11/16 14:03; Start 08/10/16 at 12:30 Vancomycin HCl 1.25 gm/Sodium Chloride 250 ml @ 167 mls/hr Q8H IV Last administered on 08/12/16 04:59; Start 08/10/16 at 13:00; Stop 08/12/16 at 08:44; Status DC Vancomycin HCl 1 each 1X ONCE MC ; Start 08/11/16 at 12:30; Stop 08/11/16 at 12: 31; Status DC Acetaminophen/ Hydrocodone Bitart (Lortab 5/325) 1 tab PRN QID PRN PO PAIN Last administered on 08/11/16 00:05; Start 08/10/16 at 22:30 Acetaminophen/ Hydrocodone Bitart (Lortab 5/325) 2 tab PRN QID PRN PO PAIN Last administered on 08/12/16 05:08; Start 08/10/16 at 22:30 Fentanyl Citrate (Fentanyl 2ml Vial) 50 mcg PRN Q1HR PRN IV PAIN; Start at 22:30 Ondansetron HCl (Zofran) 4 mg PRN Q8HRS PRN IV NAUSEA/VOMITING; Start 08/10/16 at 22:30 Morphine Sulfate 2 mg 1X ONCE IV ; Start 08/12/16 at 08:45; Stop 08/12/16 at 08: 46; Status UNV Clindamycin Phosphate 50 ml @ 100 mls/hr Q8HRS IV ; Start 08/12/16 at 14:00; Status UNV Vitals/I & O Vital Sign - Last 24 Hours 08/11/16 08/11/16 08/11/16 08/11/16 10:45 15:04 19:00 19:00 Temp 98.4 98.3 97.6 97.6 98.4 98.3 97.6 97.6 Pulse 62 65 62 62 Resp 18 18 20 20 B/P (MAP) 112/58 (76) 108/59 (75) 132/59 (83) 132/59 (83) Pulse Ox 95 98 94 94 O2 Delivery Room Air Room Air Room Air Room Air 08/11/16 08/11/16 08/11/16 08/12/16 19:44 23:00 23:43 05:08 Temp 98.0 98.0 Pulse 56 Resp 20 18 16 B/P (MAP) 117/161 (146) Pulse Ox 96 O2 Delivery Room Air Room Air Room Air 08/12/16 08/12/16 07:00 07:13 Temp 98.2 98.2 Pulse 55 Resp 18 B/P (MAP) 96/64 (75) Pulse Ox 95 96 O2 Delivery Room Air Room Air Intake and Output 08/11/16 08/11/16 08/12/16 15:00 23:00 07:00 Intake Total 680 ml 250 ml 500 ml Balance 680 ml 250 ml 500 ml NANCY CASTILLO MD Aug 12, 2016 08:53
[2016-08-12] MEDS ORDERED: CLINDAMYCIN 900MG PREMIX 50 ML IV SCH (09:00)
--- NOTE | 2016-08-12 10:03 | PDOC ---
Infectious Disease Note Vital Sign Vital Signs Vital Signs Date Time Temp Pulse Resp B/P (MAP) Pulse Ox O2 Delivery O2 Flow Rate FiO2 08/12/16 08:00 Room Air 08/12/16 07:13 96 08/12/16 07:00 98.2 55 18 96/64 (75) 98.2 Labs Lab Laboratory Tests Test 08/11/16 11:38 08/11/16 12:15 08/11/16 16:36 08/11/16 21:19 Glucose (Fingerstick) 102 mg/dL (70-99) 135 mg/dL (70-99) 120 mg/dL (70-99) White Blood Count 9.6 x10^3/uL (4.0-11.0) Red Blood Count 4.25 x10^6/uL (4.30-5.70) Hemoglobin 14.1 g/dL (13.0-17.5) Hematocrit 41.1 % (39.0-53.0) Mean Corpuscular Volume 97 fL (79-100) Mean Corpuscular Hemoglobin 33 pg (25-35) Mean Corpuscular Hemoglobin Concent 34 g/dL (31-37) Red Cell Distribution Width 11.9 % (11.5-14.5) Platelet Count 161 x10^3/uL (140-400) Neutrophils (%) (Auto) 75 % (31-73) Lymphocytes (%) (Auto) 15 % (24-48) Monocytes (%) (Auto) 8 % (0-9) Eosinophils (%) (Auto) 2 % (0-3) Basophils (%) (Auto) 1 % (0-3) Neutrophils # (Auto) 7.2 x10^3uL (1.8-7.7) Lymphocytes # (Auto) 1.4 x10^3/uL (1.0-4.8) Monocytes # (Auto) 0.7 x10^3/uL (0.0-1.1) Eosinophils # (Auto) 0.2 x10^3/uL (0.0-0.7) Basophils # (Auto) 0.0 x10^3/uL (0.0-0.2) Vancomycin Level Trough 13.9 mcg/mL (10.0-20.0) Vancomycin Last Dose Date 08/11/16 Vancomycin Last Dose Time 0500 Test 08/12/16 04:50 08/12/16 07:19 Sodium Level 139 mmol/L (136-145) Potassium Level 4.5 mmol/L (3.5-5.1) Chloride Level 105 mmol/L (98-107) Carbon Dioxide Level 27 mmol/L (21-32) Anion Gap 7 (6-14) Blood Urea Nitrogen 13 mg/dL (8-26) Creatinine 0.8 mg/dL (0.7-1.3) Estimated GFR (Cockcroft-Gault) 106.5 Glucose Level 92 mg/dL (70-99) Calcium Level 8.7 mg/dL (8.5-10.1) Glucose (Fingerstick) 116 mg/dL (70-99) Objective Assessment Left hand infection s/p injury Fever and leukocytosis Plan Plan of Care d/c clinda cont zosyn reculture JORDIN SEPULVEDA MD Aug 12, 2016 10:03
[2016-08-12 10:36] VITALS: BP 148/74
[2016-08-12 14:39] VITALS: BP 99/51
[2016-08-12 19:00] VITALS: BP 115/57
[2016-08-12] MEDS: diphenhydrAMINE HCL 25 MG CAPSULE PO PRN (22:43)
[2016-08-12 23:00] VITALS: BP 110/59
[2016-08-13] MEDS: PIPERACILLIN/TAZOBACTAM 3.375 GM in IV NORMAL SALINE 50ML 50 ML IV SCH ×6 (06:45→23:51)
--- NOTE | 2016-08-13 06:46 | CONS ---
DATE OF CONSULTATION: 08/12/2016 REQUESTING PHYSICIAN: Dr. Lefty Young. REASON FOR CONSULTATION: Extensive left hand infection. HISTORY OF PRESENT ILLNESS: This is a 41-year-old gentleman who about 10 days ago got hit with a hammer while he was working on something accidentally onto the left hand. The patient sustained a slight break in the skin. After 2-3 days, it started to swell and more painful and after about a week, it really got worse and he eventually came in. The patient had a bedside I and D done by Dr. Tidwell. The patient has extensive infection. The patient was put on vancomycin, Zosyn and clindamycin and vancomycin, he had a little itching, so now vancomycin has been stopped. The patient is feeling fine. Denies any nausea, vomiting, diarrhea. Denies any chest pain, shortness of breath, abdominal pain, urinary symptoms or bowel symptoms. The hand has a lot of swelling and pain and a large amount of pus is coming out. PAST MEDICAL HISTORY: Unremarkable. SOCIAL HISTORY: Positive for smoking. Negative for alcohol use or drug use. ALLERGIES: No known drug allergies. CURRENT MEDICATIONS: Reviewed. REVIEW OF SYSTEMS: As per HPI, all other systems reviewed are negative. PHYSICAL EXAMINATION: GENERAL: The patient is an alert, oriented gentleman, not in any distress. VITAL SIGNS: Stable, afebrile. HEENT: NAD. NECK: Supple, no JVP, no lymphadenopathy. LUNGS: Clear. HEART: S1, S2 regular. ABDOMEN: Benign. EXTREMITIES: No edema, cyanosis. SKIN: Unremarkable except the left hand is swollen. There is a packing in place into the second metacarpophalangeal joint area and with just simple pressure, there is a large amount of pus that came out. Re-culturing is done. His first culture is so far negative. I do not know how good the specimen was at that time. NEUROLOGICAL: The patient is neurologically intact. LABORATORY DATA: White count is normal, was up to 12.4. BUN and creatinine is normal. IMPRESSION: 1. Left hand extensive infection after the trauma. 2. Leukocytosis and has had fever. RECOMMENDATIONS: I would discontinue clindamycin, continue Zosyn. Reculture was done. The patient has had tetanus immunization, he says 3 years ago. Supportive care. We may have to have another I and D or open the bigger opening so that it does not close because he has got a lot of infection still. Supportive care and we will continue to follow. Thank you very much, Dr. Young, for giving me the opportunity to participate in this patient's care. JORDIN SEPULVEDA MD DR: EMILIA/al JOB#: [id number] / [id number]
[2016-08-13] MEDS: HYDROcodone/APAP 5/325MG 1 TAB TABLET PO PRN (06:49)
[2016-08-13 07:00] VITALS: BP 102/51
--- NOTE | 2016-08-13 08:50 | PDOC ---
Infectious Disease Note Subjective Subjective feeling better, ROS ROS GEN: Denies fevers, chills, sweats HEENT: Denies blurred vision, sore throat CV: Denies chest pain RESP: Denies shortness of air, cough GI: Denies n/v/d NEURO: Denies confusion, dizziness MSK: Denies weakness, joint pain/swelling Vital Sign Vital Signs Vital Signs Date Time Temp Pulse Resp B/P (MAP) Pulse Ox O2 Delivery O2 Flow Rate FiO2 08/13/16 07:00 97.8 57 18 102/51 (68) 94 Room Air 97.8 Physical Exam PHYSICAL EXAM GENERAL: NAD, Alert HEENT: PERRL, OC/OP NECK: Supple, no JVD, no LN LUNGS: Clear HEART: S1S2, no gallop, no murmur ABD: Soft, NT, no organomegaly, no rebound EXT: No edema, no cyanosis [employer]: Alert, oriented x 3, no focal neurologic deficit SKIN: No rash,, hand swelling less, bloody discharge, no more faith pus IV: ok Labs Lab Laboratory Tests Test 08/12/16 11:22 08/12/16 20:50 08/13/16 07:31 Glucose (Fingerstick) 108 mg/dL (70-99) 98 mg/dL (70-99) 93 mg/dL (70-99) Micro GRAM STAIN Final WBCS MANY RBCS MANY SQUAMOUS EPITHELIAL CELLS FEW FEW TINY GRAM POSITIVE COCCI AND FEW TINY GRAM NEGATIVE RODS, SUGGESTIVE OF ANAEROBES Objective Assessment Left hand infection s/p injury Fever and leukocytosis Plan Plan of Care cont zosyn supportive care hopefully d/c tomorrow JORDIN SEPULVEDA MD Aug 13, 2016 08:50
[2016-08-13 11:00] VITALS: BP 93/55
[2016-08-13 14:46] VITALS: BP 101/54
--- NOTE | 2016-08-13 15:30 | PDOC ---
PROGRESS NOTES Subjective Subjective His hand feels better today after Dr. Hinson also helped drain more purulent fluid out of it, repeat culture now with bacteria and still on Zosyn without any side effects Objective Objective Vital Signs Date Time Temp Pulse Resp B/P (MAP) Pulse Ox O2 Delivery O2 Flow Rate FiO2 08/13/16 14:46 97.8 58 18 101/54 (70) 94 Room Air 97.8 Intake and Output 08/13/16 07:00 Intake Total 1900 ml Balance 1900 ml Intake Oral 1900 ml # Voids 10 Physical Exam Abdomen: Normal bowel sounds, Soft Heart: Regular rate Extremities: No clubbing, No cyanosis, Other (now able to flex left fingers and wrist without pain ) General: Alert, Oriented X3, Cooperative HEENT: Atraumatic Lungs: Clear to auscultation Neck: Supple Neuro: Normal speech Psych/Mental Status: Mental status NL Assessment Assessment Problems (1) abscessof hand, left Status: Acute Plan Plan of Care continue IV antibiotics while awaiting 2nd C&S Comment Review of Relevant I have reviewed the following items salty (where applicable) has been applied. Labs Laboratory Tests Test 08/11/16 16:36 08/11/16 21:19 08/12/16 04:50 08/12/16 07:19 Glucose (Fingerstick) 135 mg/dL (70-99) 120 mg/dL (70-99) 116 mg/dL (70-99) Sodium Level 139 mmol/L (136-145) Potassium Level 4.5 mmol/L (3.5-5.1) Chloride Level 105 mmol/L (98-107) Carbon Dioxide Level 27 mmol/L (21-32) Anion Gap 7 (6-14) Blood Urea Nitrogen 13 mg/dL (8-26) Creatinine 0.8 mg/dL (0.7-1.3) Estimated GFR (Cockcroft-Gault) 106.5 Glucose Level 92 mg/dL (70-99) Calcium Level 8.7 mg/dL (8.5-10.1) Test 08/12/16 11:22 08/12/16 20:50 08/13/16 07:31 08/13/16 10:18 Glucose (Fingerstick) 108 mg/dL (70-99) 98 mg/dL (70-99) 93 mg/dL (70-99) 132 mg/dL (70-99) Laboratory Tests Test 08/12/16 20:50 08/13/16 07:31 08/13/16 10:18 Glucose (Fingerstick) 98 mg/dL (70-99) 93 mg/dL (70-99) 132 mg/dL (70-99) Microbiology 08/09/16 Blood Culture - Preliminary, Resulted NO GROWTH AFTER 3 DAYS 08/12/16 Gram Stain - Final, Complete Medications Current Medications Piperacillin Sod/ Tazobactam Sod 3.375 gm/Sodium Chloride 50 ml @ 100 mls/hr 1X ONCE IV Last administered on 08/09/16 20:29; Start 08/09/16 at 20:00; Stop 08/09/16 at 20:29; Status DC Vancomycin HCl 1 gm/Sodium Chloride 250 ml @ 250 mls/hr 1X STAT IV ; Start 08/09/16 at 19:49; Stop 08/09/16 at 20:48; Status UNV Vancomycin HCl 2 gm/Sodium Chloride 500 ml @ 250 mls/hr 1X ONCE IV Last administered on 08/09/16 22:37; Start 08/09/16 at 20:30; Stop 08/09/16 at 22:29; Status DC Morphine Sulfate 5 mg 1X ONCE IV Last administered on 08/09/16 20:53; Start at 20:45; Stop 08/09/16 at 20:46; Status DC Ondansetron HCl (Zofran) 4 mg PRN Q8HRS PRN IV NAUSEA/VOMITING; Start 08/09/16 at 20:45; Stop 08/10/16 at 20:44; Status DC Fentanyl Citrate (Fentanyl 2ml Vial) 50 mcg PRN Q1HR PRN IV PAIN Last administered on 08/10/16 20:29; Start 08/09/16 at 20:45; Stop 08/10/16 at 20:44; Status DC Diphenhydramine HCl (Benadryl) 25 mg PRN Q6HRS PRN PO ITCHING Last administered on 08/12/16 22:43; Start 08/10/16 at 00:00 Diphenhydramine HCl (Benadryl) 25 mg PRN Q6HRS PRN IVP ITCHING Last administered on 08/11/16 23:35; Start 08/10/16 at 00:00 Acetaminophen (Tylenol) 650 mg PRN Q6HRS PRN PO HEADACHE Last administered on 20:44; Start 08/10/16 at 10:15 Insulin Aspart (NovoLOG) 0-5 UNITS TIDWMEALS SQ ; Start 08/10/16 at 12:00; Stop 08/12/16 at 17:19; Status DC Dextrose (Dextrose 50%-Water Syringe) 12.5 gm PRN Q15MIN PRN IV SEE COMMENTS; Start 08/10/16 at 10:45; Stop 08/12/16 at 17:19; Status DC Piperacillin Sod/ Tazobactam Sod 3.375 gm/Sodium Chloride 50 ml @ 100 mls/hr Q6HRS IV Last administered on 08/13/16 12:07; Start 08/10/16 at 12:30 Vancomycin HCl (Vanco Per Pharmacy) 1 each PRN DAILY PRN MC SEE COMMENTS Last administered on 08/11/16 14:03; Start 08/10/16 at 12:30; Stop 08/12/16 at 08:46; Status DC Vancomycin HCl 1.25 gm/Sodium Chloride 250 ml @ 167 mls/hr Q8H IV Last administered on 08/12/16 04:59; Start 08/10/16 at 13:00; Stop 08/12/16 at 08:46; Status DC Vancomycin HCl 1 each 1X ONCE MC ; Start 08/11/16 at 12:30; Stop 08/11/16 at 12: 31; Status DC Acetaminophen/ Hydrocodone Bitart (Lortab 5/325) 1 tab PRN QID PRN PO PAIN Last administered on 08/13/16 06:49; Start 08/10/16 at 22:30 Acetaminophen/ Hydrocodone Bitart (Lortab 5/325) 2 tab PRN QID PRN PO PAIN Last administered on 08/12/16 11:30; Start 08/10/16 at 22:30 Fentanyl Citrate (Fentanyl 2ml Vial) 50 mcg PRN Q1HR PRN IV PAIN; Start at 22:30 Ondansetron HCl (Zofran) 4 mg PRN Q8HRS PRN IV NAUSEA/VOMITING; Start 08/10/16 at 22:30 Morphine Sulfate 2 mg 1X ONCE IV Last administered on 08/12/16 10:05; Start at 08:45; Stop 08/12/16 at 08:47; Status DC Clindamycin Phosphate 50 ml @ 100 mls/hr Q8HRS IV Last administered on 09:34; Start 08/12/16 at 09:00; Stop 08/12/16 at 09:59; Status DC Vitals/I & O Vital Sign - Last 24 Hours 08/12/16 08/12/16 08/12/16 08/12/16 19:00 20:00 22:43 23:00 Temp 98.8 98.3 98.8 98.3 Pulse 67 60 Resp 18 20 16 B/P (MAP) 115/57 (76) 110/59 (76) Pulse Ox 94 93 O2 Delivery Room Air Room Air 08/13/16 08/13/16 08/13/16 08/13/16 03:00 06:49 07:00 11:00 Temp 97.8 97.8 97.8 97.8 Pulse 57 53 Resp 18 18 18 B/P (MAP) 102/51 (68) 93/55 (68) Pulse Ox 94 94 O2 Delivery Room Air Room Air Room Air 08/13/16 14:46 Temp 97.8 97.8 Pulse 58 Resp 18 B/P (MAP) 101/54 (70) Pulse Ox 94 O2 Delivery Room Air Intake and Output 08/12/16 08/12/16 08/13/16 15:00 23:00 07:00 Intake Total 1060 ml 840 ml Balance 1060 ml 840 ml NANCY CASTILLO MD Aug 13, 2016 15:30
[2016-08-13 19:00] VITALS: BP 115/62
[2016-08-13 23:00] VITALS: BP 121/50
[2016-08-13] MEDS: diphenhydrAMINE HCL 25 MG CAPSULE PO PRN (23:51)
[2016-08-14] MEDS: PIPERACILLIN/TAZOBACTAM 3.375 GM in IV NORMAL SALINE 50ML 50 ML IV SCH (05:45)
[2016-08-14] MEDS: HYDROcodone/APAP 5/325MG 1 TAB TABLET PO PRN ×2 (05:50→09:37)
[2016-08-14 07:39] VITALS: BP 97/54
--- NOTE | 2016-08-14 09:03 | PDOC ---
Infectious Disease Note Subjective Subjective feeling better, ROS ROS GEN: Denies fevers, chills, sweats HEENT: Denies blurred vision, sore throat CV: Denies chest pain RESP: Denies shortness of air, cough GI: Denies n/v/d NEURO: Denies confusion, dizziness MSK: Denies weakness, joint pain/swelling Vital Sign Vital Signs Vital Signs Date Time Temp Pulse Resp B/P (MAP) Pulse Ox O2 Delivery O2 Flow Rate FiO2 08/14/16 07:52 Room Air 08/14/16 07:39 97.7 73 16 97/54 (68) 94 97.7 Physical Exam PHYSICAL EXAM GENERAL: NAD, Alert HEENT: PERRL, OC/OP NECK: Supple, no JVD, no LN LUNGS: Clear HEART: S1S2, no gallop, no murmur ABD: Soft, NT, no organomegaly, no rebound EXT: No edema, no cyanosis, hand swelling and pain and discharge much improved SHEEP SHEARER: Alert, oriented x 3, no focal neurologic deficit SKIN: No rash IV: ok Labs Lab Laboratory Tests Test 08/13/16 10:18 08/13/16 16:17 08/13/16 21:37 Glucose (Fingerstick) 132 mg/dL (70-99) 98 mg/dL (70-99) 113 mg/dL (70-99) Micro ANAEROBIC-AEROBIC CULTURE PENDING ANAEROBIC RES 1 PENDING AEROBIC CULT Final Final report AEROBIC RES 1 Final Comment Streptococcus anginosus group Moderate growth Performed at: [address] [id number] Finisher Operator: Lety Cohn MD, Phone: [phone] Objective Assessment Left hand infection s/p injury Fever and leukocytosis Plan Plan of Care change zosyn to augmentin supportive care f/u with me in 7-10 days d/c home JORDIN Cevallos MD Aug 14, 2016 09:03
[2016-08-14] MEDS ORDERED: HYDR-971 PO (09:50)
[2016-08-14] MEDS ORDERED: AMOX1TAB61 PO (09:50)
--- NOTE | 2016-08-14 09:58 | PDOC3 ---
Discharge Summary Visit Information Date of Admission: Aug 09, 2016 Date of Discharge: Aug 14, 2016 Final Diagnosis Problems Assessment (1) abscess of hand, left Status: Acute Brief Hospital Course Allergies Allergies Coded Allergies Type Severity Reaction Last Updated Verified No Known Drug Allergies 08/09/16 No Vital Signs Vital Signs Date Time Temp Pulse Resp B/P (MAP) Pulse Ox O2 Delivery O2 Flow Rate FiO2 08/14/16 09:37 16 Room Air 08/14/16 07:39 97.7 73 97/54 (68) 94 97.7 Lab Results Laboratory Tests Test 08/12/16 11:22 08/12/16 20:50 08/13/16 07:31 08/13/16 10:18 Glucose (Fingerstick) 108 mg/dL (70-99) 98 mg/dL (70-99) 93 mg/dL (70-99) 132 mg/dL (70-99) Test 08/13/16 16:17 08/13/16 21:37 Glucose (Fingerstick) 98 mg/dL (70-99) 113 mg/dL (70-99) Laboratory Tests Test 08/13/16 10:18 08/13/16 16:17 08/13/16 21:37 Glucose (Fingerstick) 132 mg/dL (70-99) 98 mg/dL (70-99) 113 mg/dL (70-99) Brief Hospital Course Mr. Enriquez is a 41 old who presented with pain and swelling of left hand after a hammer claw caused a laceration and found to have an abscess concerning for tendon involvement of the hand. Ortho saw him in consultation and opened and drained and packed the abscess but initial culture did not reveal organisms. ID was consulted and repeat culture obtained and grew Streptococcus anginosis. He responded ento IV antibiotics and swelling and pain have improved and he has transitioned to oral antibiotics and now ready for discharge home on 10 more days of po augmentin 875 mg 1 bid. He will return to the office Thursday for removal of packing and return to work note. He is give #40 norco 5/325 mg tabs 1-2 qid prn pain Discharge Information Condition at Discharge: Improved, Stable Follow Up: Weeks (friday 08/18) Disposition/Orders: D/C to Home NANCY CASTILLO MD Aug 14, 2016 09:58
[2016-08-14 10:50] VITALS: BP 108/58
[2016-08-14] MEDS ORDERED: AMOXICILLIN/K CLAV 875/125MG TABLET. PO SCH (21:00)
== END 2016-08-14 12:00 | disposition home or self-care (01) | DRG 580 ==
LOC: ER 19:21 → 5 SOUTH 20:39
PROVIDERS: ADMIT Family Medicine; ATTEND Family Medicine
PROC: 0J9K0ZZ Drainage of Left Hand Subcutaneous Tissue and Fascia, Open Approach (ICD-10-PCS; principal; 2016-08-11)
DX: L02.512 Cutaneous abscess of left hand (principal); L03.114 Cellulitis of left upper limb; J30.2 Other seasonal allergic rhinitis; R73.9 Hyperglycemia, unspecified; D72.829 Elevated white blood cell count, unspecified; Z80.42 Family history of malignant neoplasm of prostate; Z83.3 Family history of diabetes mellitus; W22.8XXA Striking against or struck by other objects, initial encounter; Z72.0 Tobacco use
CPT/HCPCS: 36415; 73130; 73221; 80048; 80053; 80202; 82784; 82962; 83036; 85027; 85651; 86140; 87040; 87071; 87075; 87205; 96365; 96374; 99406; J1200; J2270; J2543; J3010; J3370; J3490; J7040; J7050; Q0163; 99285-25; J7030